=== PATIENT | male | born 1945 | race Caucasian/White ===

== ENCOUNTER 2016-12-09 07:14 | Emergency (ER) | payer MEDICARE, OTHER ==
[~2016-12-09 07:14] MED LIST: CELEBREX200 MG PO; CIPRO500 MG PO; CLARITIN-D 121 EACH PO; CLARITIN-D1 TAB.SR .; MOTRIN800 MG PO; MULTIVITAMIN1 CAP; NORCO 5/325 TAB1 TAB PO; RELAFEN500 MG; SKELAXIN800 MG PO; VITAMIN C500 MG
[2016-12-09] MEDS ORDERED: ADVIL200 M2 PO (07:26)
[2016-12-09] MEDS ORDERED: CLARITIN10 M6 PO (07:26)
[2016-12-09] MEDS ORDERED: CRESTOR20 M1 PO (07:29)
== END 2016-12-09 08:53 ==
LOC: EDMED 07:14
PROC: 2W3RXYZ Immobilization of Left Lower Leg using Other Device (ICD-10-PCS; principal; 2016-12-09)
DX: M25.562 Pain in left knee (principal)